=== PATIENT | female | born 1965 | race Caucasian/White ===

== ENCOUNTER 2018-10-06 07:06 | Day surgery (SDC) | payer OTHER ==
[~2018-10-06] VITALS: Ht 149.9 cm; Wt 96.3 kg
[2018-10-06 08:03] VITALS: Ht 149.9 cm; Wt 96.3 kg
[2018-10-06] MEDS ORDERED: NO MEDS. (08:05)
[2018-10-06 08:07] VITALS: BP 141/74; PULSE 84; RESP 18
--- NOTE | 2018-10-06 08:23 | PREAC ---
Date/Time of Note Date/Time of Note DATE: 10/06/18 TIME: 08:21 Anesthesia Eval and Record Evaluation Time Pre-Procedure Interview DATE: 10/06/18 TIME: 08:21 Age 53 Sex female NPO: 8 hrs Preoperative diagnosis screening, abdominal pain, reflux Planned procedure EGD, Colonoscopy Past Medical History Past Medical History: Includes GI: GERD, Obesity Surgery & Anesthesia Issues No known issue Meds Anticoagulation: No Beta Emelia within 24 hr: No Reason Beta Emelia not given: Pt. not on B-Emelia Reported Medications [No Meds.] No Conflict Check 10/06/18 Meds reviewed: Yes Allergies Coded Allergies: No Known Drug Allergies (Verified Allergy, Unknown, 10/06/18) Allergies Reviewed: Yes Labs/Studies Labs Reviewed: Reviewed by anesthesiologist test: Negative Studies: ECG (n/a), CXR (n/a) Pre-procedure Exam Last vitals Vital Signs Date Temp Pulse Resp B/P (MAP) Pulse Ox O2 O2 Flow FiO2 Time Delivery Rate 10/06/18 98.2 84 18 141/74 99 Room Air 08:07 (96) Airway: Adequate mouth opening, Adequate thyromental dist Mallampati: Mallampati II Teeth: Normal Lung: Normal Heart: Normal ASA Physical Status ASA physical status: 2 Emergency: None Planned Anesthetic General/MAC: MAC Planned Pain Management Parenteral pain med Pre-operative Attestations Prior to commencing anesthesia and surgery, the patient was re-evaluated, there was verification of: *The patient's identity *The results of appropriate recent lab work and preoperative vital signs *The above evaluation not changing prior to induction *Anesthetic plan, risk benefits, alternative and complications discussed with patient/family; questions answered; patient/family understands, accepts and wishes to proceed. JENNIFER GUTIERREZ MD Oct 06, 2018 08:23
[2018-10-06] MEDS ORDERED: morphine (1 MG/ML) 10ML SYRINGE IV PRN (08:30)
[2018-10-06] MEDS ORDERED: FENTAnyl 50 MCG/ML VIAL IV PRN (08:30)
[2018-10-06] MEDS ORDERED: ONDANSETRON 4 MG INJ IV PRN (08:30)
[2018-10-06] MEDS ORDERED: OXYCODONE/ACETAMINOPHEN (5/325) TAB PO PRN (08:30)
[2018-10-06] MEDS ORDERED: EPHEDrine SULFATE 50 MG/5 ML SYG IV PRN (08:30)
[2018-10-06] MEDS ORDERED: LABETALOL HCL 20MG INJ IV PRN (08:30)
[2018-10-06] MEDS ORDERED: PROPOFOL 60 ML ONE (08:46)
[2018-10-06 09:16] VITALS: BP 121/68; PULSE 66; RESP 13
--- NOTE | 2018-10-06 09:22 | PAC ---
Date/Time of Note Date/Time of Note DATE: 10/06/18 TIME: 09:21 Post-Anesthesia Notes Post-Anesthesia Note Last documented vital signs Vital Signs Date Temp Pulse Resp B/P (MAP) Pulse Ox O2 O2 Flow FiO2 Time Delivery Rate 10/06/18 98.2 84 18 141/74 99 Room Air 09:07 (96) Activity: WNL Respiratory function: WNL Cardiovascular function: WNL Mental status: Baseline Pain reasonably controlled: Yes Hydration appropriate: Yes Nausea/Vomiting absent: Yes JENNIFER GUTIERREZ MD Oct 06, 2018 09:22
== END 2018-10-06 11:22 | disposition home or self-care (01) ==
LOC: GIL 07:06
PROVIDERS: ATTEND Internal Medicine Gastroenterology
DX: Z12.11 Encounter for screening for malignant neoplasm of colon (principal); K64.8 Other hemorrhoids; K21.9 Gastro-esophageal reflux disease without esophagitis; K29.30 Chronic superficial gastritis without bleeding; E66.9 Obesity, unspecified; Z68.41 Body mass index [BMI] 40.0-44.9, adult
CPT/HCPCS: 43239; 45378; 84703; 88305; 88312; Z7610

== ENCOUNTER 2019-05-08 08:04 | Day surgery (SDC) | payer OTHER ==
[~2019-05-08] VITALS: Ht 149.9 cm; Wt 85.1 kg
[2019-05-08] VITALS (11 sets, daily range): BP systolic 104–151; BP diastolic 57–86; PULSE 60–72; RESP 10–25; Ht 149.9 cm; Wt 85.1 kg
[~2019-05-08 08:04] MED LIST: LACTATED RINGER'S 1,000 ML (ENTER RATE) IV SCH; NO MEDS.
--- NOTE | 2019-05-08 10:44 | PREAC ---
Date/Time of Note Date/Time of Note DATE: 05/08/19 TIME: 10:43 Anesthesia Eval and Record Evaluation Time Pre-Procedure Interview DATE: 05/08/19 TIME: 10:43 Age 54 Sex female NPO: 8 hrs Preoperative diagnosis postmenopausal bleeding Planned procedure D&C Past Medical History Past Medical History: Includes GI: Obesity Surgery & Anesthesia Issues No known issue Meds Anticoagulation: No Beta Emelia within 24 hr: No Reason Beta Emelia not given: Pt. not on B-Emelia Discontinued Reported Medications [No Meds.] No Conflict Check 10/06/18 Current Medications Lactated Ringer's 1,000 ml @ 25 mls/hr Q24H IV Last administered on 05/08/19at 09:09; Admin Dose 25 MLS/HR; Start 05/08/19 at 07:00 Meds reviewed: Yes Allergies Coded Allergies: No Known Drug Allergies (Verified Allergy, Unknown, 05/08/19) Allergies Reviewed: Yes Labs/Studies Labs Reviewed: Reviewed by anesthesiologist Result Diagram: 05/08/19 0830 05/08/19 0830 Laboratory Tests 05/08/19 08:30 Blood Bank Test 05/08/19 08:30 Antibody Screen NEGATIVE Blood Type A POSITIVE test: Negative Studies: ECG (nsr, nml) Pre-procedure Exam Last vitals Vital Signs Date Temp Pulse Resp B/P (MAP) Pulse Ox O2 O2 Flow FiO2 Time Delivery Rate 05/08/19 97.4 64 16 151/85 100 Room Air 08:54 (107) Airway: Adequate mouth opening, Adequate thyromental dist Mallampati: Mallampati II Teeth: Normal Lung: Normal Heart: Normal ASA Physical Status ASA physical status: 2 Emergency: None Planned Anesthetic General/MAC: LMA Pre-operative Attestations Prior to commencing anesthesia and surgery, the patient was re-evaluated, there was verification of: *The patient's identity *The results of appropriate recent lab work and preoperative vital signs *The above evaluation not changing prior to induction *Anesthetic plan, risk benefits, alternative and complications discussed with patient/family; questions answered; patient/family understands, accepts and wishes to proceed. VERO CAT May 08, 2019 10:44
[2019-05-08] MEDS ORDERED: PROPOFOL 40 ML ONE (10:50)
[2019-05-08] MEDS ORDERED: SEVOFLURANE 15 MIN ONE (10:50)
[2019-05-08] MEDS ORDERED: LIDOCAINE 2% (SDV) 5 ML INJ ONE (10:50)
[2019-05-08] MEDS ORDERED: FAMOTIDINE 20 MG INJ ONE (10:51)
[2019-05-08] MEDS ORDERED: FENTAnyl 50 MCG/ML VIAL ONE (10:51)
[2019-05-08] MEDS ORDERED: MIDAZOLAM 1 MG/ML 2 ML INJ ONE (10:51)
[2019-05-08] MEDS ORDERED: CEFAZOLIN 1 GM INJ ONE (10:51)
[2019-05-08] MEDS ORDERED: ONDANSETRON 4 MG INJ IV PRN (11:00)
[2019-05-08] MEDS ORDERED: LABETALOL HCL 20MG INJ IV PRN (11:00)
[2019-05-08] MEDS ORDERED: ALBUTEROL 0.083% (NEB) 2.5 MG/3 ML AMP HHN PRN (11:00)
[2019-05-08] MEDS ORDERED: morphine 2 MG INJ IV PRN ×2 (11:00)
[2019-05-08] MEDS ORDERED: DIPHENHYDRAMINE 50 MG INJ IV PRN (11:00)
[2019-05-08] MEDS ORDERED: HYDROmorphONE 1 MG/5 ML IV SYRINGE IV PRN ×3 (11:00)
[2019-05-08] MEDS ORDERED: OXYCODONE/ACETAMINOPHEN (5/325) TAB PO PRN ×2 (11:00)
[2019-05-08] MEDS ORDERED: hydrALAzine 20 MG INJ IV PRN (11:00)
[2019-05-08] MEDS ORDERED: EPHEDrine 25 MG/5 ML SYG IV PRN (11:00)
[2019-05-08] MEDS ORDERED: FENTAnyl 50 MCG/ML VIAL IV PRN ×2 (11:00)
[2019-05-08] MEDS ORDERED: MEPERIDINE 25 MG INJ IV PRN (11:00)
--- NOTE | 2019-05-08 12:00 | SIPON ---
Date/Time of Note Date/Time of Note DATE: 05/08/19 TIME: 11:58 Operative Report Preoperative Diagnosis Abnormal uterine bleeding Postoperative Diagnosis Same Operation/Procedure Performed D&C Surgeon Samantha Lim MD conservation assistant None Anesthesia: general Estimated blood loss: minimal Transfusion Required none Specimen ECC and EMC Grafts/Implants none Complications none SAMANTHA LIM MD May 08, 2019 12:00
--- NOTE | 2019-05-08 12:48 | PREOPHP ---
DATE OF ADMISSION: 05/08/2019 HISTORY OF PRESENT ILLNESS: A 54-year-old female 3, para 2, AB 1, last menstrual period 01/25 019 is admitted with history of abnormal uterine bleeding. PAST MEDICAL HISTORY: Unremarkable. PAST SURGICAL HISTORY: Endoscopy and a colonoscopy. ALLERGIES: NO KNOWN ALLERGIES. FAMILY HISTORY: Noncontributory. PHYSICAL EXAMINATION: VITAL SIGNS: The patient is afebrile. Vital signs stable. HEAD, NECK AND CHEST: Within normal limits. ABDOMEN: Soft, nontender, nondistended. PELVIC: Normal. EXTREMITIES: Within normal limits. NEUROLOGIC: Within normal limits. IMPRESSION: Abnormal uterine bleeding. PLAN: Dilation and curettage. Risks, benefits and alternatives of procedure were explained to weston celis. The patient said she understood and gave informed consent for the procedure. Dictated By: SAMANTHA EMERY/VITO Conf#: [id number] DID#: [id number]
--- NOTE | 2019-05-08 14:06 | PAC ---
Date/Time of Note Date/Time of Note DATE: 05/08/19 TIME: 14:06 Post-Anesthesia Notes Post-Anesthesia Note Last documented vital signs Vital Signs Date Temp Pulse Resp B/P (MAP) Pulse Ox O2 O2 Flow FiO2 Time Delivery Rate 05/08/19 98 75 16 120/65 100 Room Air Activity: WNL Respiratory function: WNL Cardiovascular function: WNL Mental status: Baseline Pain reasonably controlled: Yes Hydration appropriate: Yes Nausea/Vomiting absent: Yes CIELO KAUFMAN DO May 08, 2019 14:06
--- NOTE | 2019-05-08 15:42 | OPR ---
DATE OF OPERATION: 05/08/2019 PREOPERATIVE DIAGNOSIS: Abnormal uterine bleeding. POSTOPERATIVE DIAGNOSIS: Abnormal uterine bleeding. OPERATION: Dilation and curettage. SURGEON: Samantha Redd MD ANESTHESIA: General. ANESTHESIOLOGIST: Dr. Cordova. PROCEDURE: The patient was taken to the operating room and placed on the operating table in supine p osition. After adequate general anesthesia was given, the patient was placed in dorsal lithotomy pos ition. The area was prepared and draped in the usual sterile fashion. Speculum was placed inside th e vagina and tenaculum was used to grasp the anterior lip of the cervix. Using Kevorkian curet, endo cervical curettage was performed and specimen obtained was sent to pathology. Next, using cervical d ilators, the cervical os was dilated. Using a sharp curet, endometrial curettage was performed, and the specimen obtained was sent to pathology. All the instruments were removed. Adequate hemostasis was assured. The patient tolerated the procedure well. The patient was awakened from anesthesia and transferred to recovery room in stable condition. ESTIMATED BLOOD LOSS: Minimal. COUNTS: All counts were correct. Dictated By: SAMANTHA EMERY/NTS Conf#: [id number] DID#: [id number]
--- NOTE | 2019-05-09 17:19 | RADRPT ---
Vent Rate: 73 bpm RR Interval: 824 msec MS Interval: 161 msec QRS Duration: 82 msec QT Interval: 384 msec QTC Interval: 423 msec P-R-T [place]: 50 - 16 - 31 degrees Sinus rhythm...normal P axis, V-rate 50- 99 Electronically Signed By: Cr Camacho
== END 2019-05-08 14:05 | disposition home or self-care (01) ==
LOC: SDS 08:04
PROVIDERS: ATTEND Obstetrics & Gynecology
DX: N85.00 Endometrial hyperplasia, unspecified (principal)
CPT/HCPCS: 58120; 71045; 80053; 84703; 85025; 86850; 86900; 86901; 88305; 93005; J0690; J2250; J3010; Z7512; Z7610